=== PATIENT | male | born 1990 | race Caucasian/White ===

== ENCOUNTER 2017-06-30 09:14 | Inpatient (IN) | payer SELFPAY ==
[~2017-06-30] VITALS: Ht 165.1 cm; Wt 54.4 kg
[2017-06-30] MEDS ORDERED: MORPHINE SULFATE 4 MG/ML CPJ (NOT FOR IM USE) IV STA (09:31)
[2017-06-30] MEDS ORDERED: ONDANSETRON HCL 4MG/2ML VIAL IV STA (09:31)
[2017-06-30] MEDS ORDERED: SODIUM CHLORIDE 0.9% 1,000 ML IV ONE (09:31)
[2017-06-30] MEDS ORDERED: CEFTRIAXONE 1 G PREMIX 50 ML IV ONE (09:45)
[2017-06-30] MEDS ORDERED: AZITHROMYCIN 1,000 MG in DEXT 5% WATER 250 ML IV SCH (09:45)
[2017-06-30 10:16] LABS: HEMATOCRIT. 48.7 % (42.0-52.0); HEMOGLOBIN. 16.6 g/dL (14.0-18.0); MEAN CORPUSCULAR HEMOGLOBIN 30.9 pg (28.0-32.0); MEAN CORPUSCULAR VOLUME 90.7 fL (80.0-94.0); MEAN PLATELET VOLUME 7.2 fl (7.4-10.4); PLATELET 356 x1000/uL (130-400); RED BLOOD CELL COUNT 5.37 mill/uL (4.7-6.1); RED CELL DISTRIBUTION WIDTH 13.1 % (11.6-14.6)
[2017-06-30 10:22] LABS: CHLORIDE 106 mEq/L (98-107)
[2017-06-30 10:23] LABS: PROTHROMBIN TIME 10.5 sec (9.4-11.6)
[2017-06-30 10:30] LABS: CARBON DIOXIDE 23 mEq/L (21-32)
[2017-06-30] MEDS ORDERED: AZITHROMYCIN 500 MG TABLET PO NR (10:30)
[2017-06-30 10:48] LABS: PLATELET ESTIMATE NORMAL
[2017-06-30 13:11] LABS: CLARITY URINE CLEAR (CLEAR); COLOR URINE YELLOW (YELLOW); KETONES URINE TRACE (NEGATIVE); LEUKOCYTE ESTERASE URINE NEGATIVE (NEGATIVE); NITRITE URINE NEGATIVE (NEGATIVE); OCCULT BLOOD URINE NEGATIVE (NEGATIVE); PROTEIN URINE NEGATIVE (NEGATIVE); SPECIFIC GRAVITY URINE 1.019 (1.005-1.030); UROBILINOGEN URINE 0.2 E.U./dL (0.2-1.0)
[2017-06-30] MEDS ORDERED: BUPIVACAINE HCL 0.5% (5MG/ML) 50ML ONE (13:22)
[2017-06-30] MEDS ORDERED: SKIN ADHESIVE 0.7 GM EA TOP ONE (13:22)
[2017-06-30] MEDS ORDERED: MIDAZOLAM HCL 2 MG/2 ML VIAL ONE (13:27)
[2017-06-30] MEDS ORDERED: HYDROMORPHONE HCL/PF 2MG/ML (OR) ONE (13:27)
[2017-06-30] MEDS ORDERED: ONDANSETRON HCL 4MG/2ML VIAL IV PRN ×3 (13:30→22:00)
[2017-06-30] MEDS ORDERED: PROPOFOL 200MG/20ML VIAL IV ONE (14:03)
[2017-06-30] MEDS ORDERED: HYDROMORPHONE HCL/PF 2MG/ML CPJ IV PRN ×2 (15:30)
[2017-06-30] MEDS ORDERED: MEPERIDINE HCL/PF 25MG/ML CPJ IV PRN (15:30)
[2017-06-30 20:00] VITALS: BP 141/91
[2017-06-30 20:30] VITALS: BP 141/91
[2017-06-30] MEDS: MORPHINE SULFATE 2 MG/ML CPJ (NOT FOR IM USE) IV PRN ×2 (20:32→23:35)
[2017-06-30] MEDS: FAMOTIDINE 20MG/2ML VIAL IV SCH (20:54)
[2017-06-30] MEDS ORDERED: DEXT 5%/0.45% NACL KCL 20MEQ/L 1,000 ML IV SCH (21:00)
[2017-06-30] MEDS ORDERED: IPRATROPIUM/ALBUTEROL 0.5-3(2.5)MG/3ML NEB INH PRN (22:00)
[2017-06-30] MEDS ORDERED: DIPHENHYDRAMINE 50MG/ML VIAL IV PRN (22:00)
[2017-06-30] MEDS ORDERED: LORAZEPAM 0.5MG TABLET PO PRN (22:00)
[2017-06-30] MEDS ORDERED: ACETAMINOPHEN 650MG SUPP PR PRN (22:00)
[2017-06-30] MEDS ORDERED: KETOROLAC 15MG/ML VIAL IV PRN (22:00)
[2017-06-30 23:43] VITALS: BP 139/85
[2017-07-01] MEDS: MORPHINE SULFATE 2 MG/ML CPJ (NOT FOR IM USE) IV PRN ×4 (03:17→19:34)
[2017-07-01 04:00] VITALS: BP 153/96
[2017-07-01 07:41] LABS: HEMATOCRIT. 42.5 % (42.0-52.0); HEMOGLOBIN. 14.6 g/dL (14.0-18.0); MEAN CORPUSCULAR VOLUME 90.2 fL (80.0-94.0); MEAN PLATELET VOLUME 7.4 fl (7.4-10.4); PLATELET 304 x1000/uL (130-400); RED BLOOD CELL COUNT 4.71 mill/uL (4.7-6.1); RED CELL DISTRIBUTION WIDTH 13.2 % (11.6-14.6)
[2017-07-01 07:53] VITALS: BP 151/100
[2017-07-01] MEDS: PANTOPRAZOLE SODIUM 40 MG/VIAL IV SCH (07:57)
[2017-07-01] MEDS: FAMOTIDINE 20MG/2ML VIAL IV SCH ×2 (07:57→23:15)
[2017-07-01 08:32] LABS: CARBON DIOXIDE 28 mEq/L (21-32); CHLORIDE 104 mEq/L (98-107)
[2017-07-01 12:00] VITALS: BP 143/95
[2017-07-01] MEDS: DEXT 5%/0.45% NACL KCL 20MEQ/L 1,000 ML IV SCH (15:07)
[2017-07-01 15:57] VITALS: BP 155/88
[2017-07-01 18:02] LABS: PLATELET ESTIMATE NORMAL
[2017-07-01 20:00] VITALS: BP 151/88
[2017-07-02] VITALS: BP 143/90
[2017-07-02 04:00] VITALS: BP 136/90
[2017-07-02] MEDS: DEXT 5%/0.45% NACL KCL 20MEQ/L 1,000 ML IV SCH ×3 (05:00→20:07)
[2017-07-02 07:45] VITALS: BP 122/69
[2017-07-02] MEDS: PANTOPRAZOLE SODIUM 40 MG/VIAL IV SCH (08:45)
[2017-07-02] MEDS: FAMOTIDINE 20MG/2ML VIAL IV SCH ×2 (08:45→20:06)
[2017-07-02 11:42] VITALS: BP 133/86
[2017-07-02 16:07] VITALS: BP 130/82
[2017-07-02 20:00] VITALS: BP 126/78
[2017-07-02] MEDS: MORPHINE SULFATE 2 MG/ML CPJ (NOT FOR IM USE) IV PRN (21:54)
[2017-07-03] VITALS: BP 130/85
[2017-07-03 04:00] VITALS: BP 127/82
[2017-07-03] MEDS: DEXT 5%/0.45% NACL KCL 20MEQ/L 1,000 ML IV SCH ×2 (05:26→20:51)
[2017-07-03 08:00] VITALS: BP 122/82
[2017-07-03] MEDS: FAMOTIDINE 20MG/2ML VIAL IV SCH ×2 (09:33→20:51)
[2017-07-03] MEDS: PANTOPRAZOLE SODIUM 40 MG/VIAL IV SCH (09:33)
[2017-07-03 12:00] VITALS: BP 115/77
[2017-07-03 16:09] VITALS: BP 117/70
[2017-07-03 20:00] VITALS: BP 114/67
[2017-07-04] VITALS (7 sets, daily range): BP systolic 110–125; BP diastolic 63–78
[2017-07-04] MEDS: DEXT 5%/0.45% NACL KCL 20MEQ/L 1,000 ML IV SCH (08:57)
[2017-07-04] MEDS: FAMOTIDINE 20MG/2ML VIAL IV SCH (08:57)
[2017-07-04] MEDS: PANTOPRAZOLE SODIUM 40 MG/VIAL IV SCH (08:57)
== END 2017-07-04 20:10 | disposition home or self-care (01) | DRG 221 ==
LOC: ER 09:14 → ORIP 12:47 → 8WST 19:39
PROVIDERS: ADMIT Internal Medicine; ATTEND Internal Medicine
PROC: 0YQ50ZZ Repair Right Inguinal Region, Open Approach (ICD-10-PCS; 2017-06-30)
PROC: 0DBU0ZZ Excision of Omentum, Open Approach (ICD-10-PCS; 2017-06-30)
PROC: 0DB80ZZ Excision of Small Intestine, Open Approach (ICD-10-PCS; principal; 2017-06-30 13:00)
DX: K40.30 Unilateral inguinal hernia, with obstruction, without gangrene, not specified as recurrent (principal); K55.029 Acute infarction of small intestine, extent unspecified; N44.00 Torsion of testis, unspecified; N50.89 Other specified disorders of the male genital organs
CPT/HCPCS: 36415; 71010; 76870; 80048; 80053; 81001; 85025; 85610; 87040; 87086; 88305; 93976; 96365; 96375; 99285; C9113; J0456; J0696; J1170; J1885; J2250; J2270; J2405; J2704; J3490; J7030; J7060